=== PATIENT | male | born 2000 | race Caucasian/White ===

== ENCOUNTER 2019-01-12 01:44 | Emergency (ER) | payer MEDICAID ==
[~2019-01-12] VITALS: Ht 165.1 cm; Wt 65.8 kg
[2019-01-12 01:45] VITALS: BP 134/77
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
--- NOTE | 2019-01-12 02:06 | NUR ---
Patient discharged with v/s stable. Written and verbal after care instructions given and explained. Patient verbalized understanding. Ambulatory WITH [facility] with in custody. All questions addressed prior to discharge. Advised to follow up with PMD.
== END 2019-01-12 02:06 ==
LOC: MED 01:44
DX: Z02.89 Encounter for other administrative examinations (principal); V89.2XXA Person injured in unspecified motor-vehicle accident, traffic, initial encounter; Y93.89 Activity, other specified; Y92.410 Unspecified street and highway as the place of occurrence of the external cause; Y99.8 Other external cause status
CPT/HCPCS: 99283